=== PATIENT | male | born 1990 | race Caucasian/White ===

== ENCOUNTER → 2016-12-22 | Outpatient (CLI) | payer OTHER ==
--- NOTE | ~2016-12-22 | EE ---
Unit #: [id number] #: [id number] Patient: KEELEY NI [id number] [address] [address] [id number] O MR#: [id number] NAME: KEELEY NI : 1990 SEX: M STUDY DATE/TIME: 12/22/2016 UNIT: CEEG ROOM: STUDY DESCRIPTION: EEG Attending Physician: Felix Schwab II., M.D. Referring Physician: Felix Schwab II., M.D. Primary Care Physician: No Primary Care Physician NEURODIAGNOSTICS REPORT EXAM EEG. TECH Luma. REASON FOR STUDY Seizures. TECHNICAL INFORMATION This is a routine EEG performed using the standard international 10-20 system of electrode placement. Hyperventilation was performed. Photic stimulation was also performed. REPORT Throughout the entire study, the best background rhythm seen was approximately 8-9 Hz. This rhythm is seen in both posterior head regions symmetrically and does attenuate to eye opening and closure. Hyperventilation was performed, which did not elicit any abnormal buildup. Photic stimulation was also performed, which failed to reproduce any abnormal buildup. Throughout the entire study there were no electrographic seizures recorded, nor were there any independent epileptiform abnormalities seen. There was no sleep recorded during the EEG. INTERPRETATION This is a normal EEG. A normal awake EEG does not rule out the possibility of a seizure disorder. Clinical correlation is advised. Dictated by... Felix Schwab II., M.D. GWS/arun TD: 12/24/2016 13:27 JOB #: [id number] Unit #: [id number] #: [id number] Patient: KEELEY NI NEURODIAGNOSTICS REPORT Page 1 of 1 X NEURODIAGNOSTICS REPORT
== END | disposition home or self-care (01) ==
LOC: CEEG 07:25
DX: G40.B09 Juvenile myoclonic epilepsy, not intractable, without status epilepticus (principal)
CPT/HCPCS: 95816